=== PATIENT | male | born 1985 | race Hispanic/Latino ===

== ENCOUNTER 2017-04-08 19:24 | Emergency (ER) | payer SELFPAY ==
[2017-04-08] MEDS ORDERED: ACETAMINOPHEN-CODEINE 300/30MG TAB ONE (20:24)
== END 2017-04-08 20:36 | disposition home or self-care (01) ==
LOC: EDH 19:24
DX: S60.222A Contusion of left hand, initial encounter (principal); Y99.8 Other external cause status; Z72.0 Tobacco use; W22.8XXA Striking against or struck by other objects, initial encounter; Y93.89 Activity, other specified; Y92.89 Other specified places as the place of occurrence of the external cause; M79.671 Pain in right foot
CPT/HCPCS: 73130

== ENCOUNTER 2017-04-24 18:23 | Emergency (ER) | payer SELFPAY ==
[2017-04-24 18:57] LABS: BASOPHILS % (AUTO) 0.4 % (0.0-5.0); HEMATOCRIT 42.4 % (42-54); LYMPHOCYTES % (AUTO) 13.3 % (21.0-51.0); MEAN CORPUSCULAR HEMOGLOBIN 28.7 pg (27.0-33.0); MEAN CORPUSCULAR HGB CONC 33.3 g/dL (32.0-36.0); MEAN CORPUSCULAR VOLUME 86.2 fL (79-99); MONOCYTES % (AUTO) 9.7 % (3.0-13.0); NEUTROPHILS % (AUTO) 76.6 % (40.0-77.0); PLATELET COUNT (AUTO) 455 K/uL (130-400); RED BLOOD CELL COUNT(AUTO) 4.91 MIL/uL (4.50-6.20); WHITE BLOOD COUNT (AUTO) 19.3 K/uL (4.8-10.8)
[2017-04-24 19:14] LABS: CREATININE 1.1 mg/dL (0.5-1.5); POTASSIUM 3.8 mmol/L (3.5-5.1)
[2017-04-24] MEDS ORDERED: DEXAMETHASONE SOD PHOSPHATE 10MG/ML 1ML VIAL ONE (19:36)
[2017-04-24] MEDS ORDERED: CEFTRIAXONE SODIUM 1 GM ONE (19:36)
[2017-04-24] MEDS ORDERED: LIDOCAINE HCL-MPF 1% 2ML VIAL ONE (19:36)
== END 2017-04-24 20:15 | disposition home or self-care (01) ==
LOC: EDH 18:23
DX: J03.00 Acute streptococcal tonsillitis, unspecified (principal); R50.81 Fever presenting with conditions classified elsewhere; Z98.890 Other specified postprocedural states
CPT/HCPCS: 36415; 80048; 85025; 87880; 96372 ×2; 99284; J0696; J1100; J3490

== ENCOUNTER 2018-05-23 19:43 | Emergency (ER) | payer OTHER ==
[~2018-05-23 19:43] MED LIST: ACET-2247 PO
[2018-05-23] MEDS ORDERED: AMOXICILLIN 500 MG CAPSULE PO ONE (19:59)
[2018-05-23] MEDS ORDERED: ACETAMINOPHEN EXTRA STRENGTH 500 MG TABLET ONE (19:59)
[2018-05-23] MEDS ORDERED: IBUPROFEN 400 MG TABLET ONE (20:00)
== END 2018-05-23 21:30 | disposition home or self-care (01) ==
LOC: EDH 19:43
DX: K04.7 Periapical abscess without sinus (principal); Z72.0 Tobacco use